=== PATIENT | female | born 1985 | race Caucasian/White ===

== ENCOUNTER 2016-04-04 23:13 | Emergency (ER) | payer OTHER, MEDICARE ==
[~2016-04-04] VITALS: Ht 160 cm; Wt 72.6 kg
[2016-04-04] MEDS ORDERED: PROPRANOLOL HCL20 M1 PO (23:35)
[2016-04-04] MEDS ORDERED: FOLIC ACID1 M1 PO (23:35)
[2016-04-04] MEDS ORDERED: CLOZARIL100 M1 PO (23:36)
[2016-04-04] MEDS ORDERED: TOPIRAMATE100 M2 PO (23:36)
[2016-04-04] MEDS ORDERED: LIOTHYRONINE SO5 MC1 PO (23:36)
[2016-04-04] MEDS ORDERED: LEVOTHYROXINE100 MC1 PO (23:36)
[2016-04-04] MEDS ORDERED: SIMVASTATIN40 M1 PO (23:36)
--- NOTE | 2016-04-05 00:23 | ED NEURO DEFICIT/STROKE ---
History of Present Illness General Chief Complaint: General Adult Stated Complaint: PER PT" DIFF USING WORDS OFF BALANCE" Source: patient Exam Limitations: no limitations Vital Signs & Intake/Output Vital Signs & Intake/Output Vital Signs Date Time Temp Pulse Resp B/P Pulse O2 O2 Flow FiO2 Ox Delivery Rate 04/04 2334 Room Air 04/04 2324 98.6 93 18 112/75 98 Room Air ED Intake and Output 04/05 0000 04/04 1200 Intake Total Output Total Balance Patient 160 lb Weight Allergies Coded Allergies: NO KNOWN ALLERGIES (11/13/10) Reconcile Medications Clozapine (Clozaril) 100 MG TABLET 1 TAB PO BID (Reported) Folic Acid 1 MG TABLET 1 TAB PO DAILY SUPPLEMENT (Reported) Levothyroxine Sodium 100 MCG TABLET 1 TAB PO DAILY THYROID (Reported) Liothyronine Sodium 5 MCG TABLET 1 TAB PO DAILY HYPOTHYROID (Reported) Propranolol HCl 20 MG TABLET 1 TAB PO BID HTN (Reported) Simvastatin (Simvastatin*) 40 MG TABLET 1 TAB PO QPM CHOLESTEROL (Reported) Topiramate 100 MG TABLET 1 TAB PO BID SEIZURES (Reported) Triage Note: PT TO ED WITH MOM FOR DIFFICULTY FINDING WORDS AND FEELING OFF BALNACE. PMH OF CVA IN 2009. HAD SPEACH AND PHYSICAL THERAPY AND WAS BACK TO BASELING. NO FAICAL DROOP, NO ARM DRIFT, NO DIFFICULTY WALKING TO TRIAGE. PT TEXTING ON PHONE IN WAITING ROOM. PER MOM, SPEACH IS STILL NOT BACK TO [place]. PMH OF MIGRAINES. C/O HEADACHE. PMH OF ANXIETY, BIPOLAR AND SCHIZO Triage Nurses Notes Reviewed? yes : No Patient currently breastfeeds: No HPI: Patient presents for evaluation of her getting her words and switching her words began abruptly at about 9:00 this evening. Patient states that she checked herself or weakness by holding her hands out in front of her and felt that she was weak on the left side. In addition she is also experiencing a dull bilateral temporal headache with no associated visual changes. She does have a history of migraine headaches with aura. Patient is concerned about the severity of her symptoms because of a prior stroke she had a number of years ago of an unclear etiology. Past History Travel History Traveled to [place] past 21 day No Medical History Any Pertinent Medical History? see below for history Neurological: migraine, TREMOR Cardiovascular: CVA Respiratory: asthma Musculoskeletal: SCOLIOSIS HYPOTONIA Psychiatric: anxiety, bipolar disease, schizo affective disorder Endocrine: hypothyroidism, INSULIN RESISTANCE Surgical History Surgical History: non-contributory Psychosocial History Who do you live with Mother What is your primary language Irish Tobacco Use: Never used ETOH Use: denies use Illicit Drug Use: denies illicit drug use Family History Hx Contributory? No Review of Systems Review of Systems Constitutional: Reports: no symptoms. EENTM: Reports: no symptoms. Respiratory: Reports: no symptoms. Cardiovascular: Reports: no symptoms. GI: Reports: no symptoms. Genitourinary: Reports: no symptoms. Musculoskeletal: Reports: no symptoms. Skin: Reports: no symptoms. Neurological/Psychological: Reports: see HPI. Hematologic/Endocrine: Reports: no symptoms. Immunologic/Allergic: Reports: no symptoms. All Other Systems: Reviewed and Negative Physical Exam Physical Exam General Appearance: sEE BELOW Cranial Nerves: SEE BELOW Comments: Gen.: Well-nourished, well-developed, no acute respiratory distress. Head: Normocephalic, atraumatic. Face: Sensation to light touch intact, no facial droop Eyes: Normal inspection bilaterally Ears: Normal inspection bilaterally Nose: Normal inspection Throat/mouth : Moist mucosa Neck: Supple, full range of motion, no goiter Heart: Regular rate and rhythm, no murmurs rubs or gallops Lungs: Clear to auscultation bilaterally with normal air entry Chest: Nontender Back: Normal range of motion Abdomen: Soft, nontender, nondistended, normal bowel sounds Extremities: Normal range of motion grossly, equal radial pulses, no cyanosis clubbing or edema, muscle strength normal, no dysmetria of the upper or lower extremities Neurologic: Cranial nerves 2 through 12 intact, speech is clear aside from mild dysarthria (chronic per patient and mother) Skin: warm and dry Psychiatric: Calm, cooperative, no apparent delusions or hallucinations Core Measures CVA/TIA Diagnosis: No Severe Sepsis Present: No Septic Shock Present: No Progress Differential Diagnosis: IMPLICATED MIGRAINE, cva, HYPO-/HYPERTHYROIDISM Plan of Care: Orders Procedure Date/time Status CT HEAD WO IV CONTRAST 04/05 18 Active Diagnostic Imaging: Discussed w/RAD: CT Scan. Radiology Impression: PATIENT: POLI RODRIGEZ PRESENT AGE: 30 PATIENT ACCOUNT NO: [id number] : 87 LOCATION: [facility] ORDERING PHYSICIAN: TYE SALINAS MD SERVICE DATE: 04/05/16 EXAM TYPE: CAT - CT HEAD WO IV CONTRAST CT HEAD WITHOUT CONTRAST CLINICAL INFORMATION: Trouble speaking with history of prior CVA/bleed. COMPARISON: Brain MRI 03/14/[address] 12/23/2011. TECHNIQUE: Contiguous axial imaging was performed from the skull base to vertex without intravenous administration of contrast. FINDINGS: There is no intracranial hemorrhage, hydrocephalus, extra-axial surface collection, midline shift, or other herniation pattern. No dense cerebral artery sign is appreciated. Boyd to white matter differentiation is diffusely maintained without evidence of an evolved acute territorial infarct. A chronic lacunar infarct within the left thalamus is redemonstrated. The basilar cisterns are preserved. No significant soft tissue abnormality. No acute osseous abnormality. The paranasal sinuses and the mastoid air cells are well-aerated. IMPRESSION: - No acute intracranial abnormality. - A chronic lacunar infarct within the left thalamus is redemonstrated. DICTATED BY: TYE MCGILL MD DATE /TIME DICTATED:04/05/1658 COMPOSITE LAYUP WORKER:TIMMY DATE/TIME TRANSCRIBED: 04/05/1658 CONFIDENTIAL, DO NOT COPY WITHOUT APPROPRIATE AUTHORIZATION. < Electronically signed in Other Vendor System> SIGNED BY: TYE MCGILL MD 04/05/16 0107 Initial ED EKG: none Comments: Given the normal physical examination, the patient and her mother decided to simply check a CAT scan of the head. Departure Departure Disposition: HOME OR SELF CARE Condition: Stable Clinical Impression Primary Impression: Dysarthria Referrals: BUBBA JIMENEZ,BAYRON BORJA (PCP/Family) Additional Instructions: FOLLOW up with your neurologist this week. Notify your primary care doctor of this emergency Department visit and treatment plan. Return if any concerns or sudden worsening. Departure Forms: Customer Survey General Discharge Information
--- NOTE | 2016-04-05 01:07 | CT SCAN REPORT ---
CT HEAD WITHOUT CONTRAST CLINICAL INFORMATION: Trouble speaking with history of prior CVA/bleed. COMPARISON: Brain MRI 03/14/[address] 12/23/2011. TECHNIQUE: Contiguous axial imaging was performed from the skull base to vertex without intravenous administration of contrast. FINDINGS: There is no intracranial hemorrhage, hydrocephalus, extra-axial surface collection, midline shift, or other herniation pattern. No dense cerebral artery sign is appreciated. Boyd to white matter differentiation is diffusely maintained without evidence of an evolved acute territorial infarct. A chronic lacunar infarct within the left thalamus is redemonstrated. The basilar cisterns are preserved. No significant soft tissue abnormality. No acute osseous abnormality. The paranasal sinuses and the mastoid air cells are well-aerated. IMPRESSION: - No acute intracranial abnormality. - A chronic lacunar infarct within the left thalamus is redemonstrated.
[2016-04-05 02:30] VITALS: BP 115/69
== END 2016-04-05 02:32 ==
LOC: ERH 23:13
DX: R47.1 Dysarthria and anarthria (principal); R51 Headache

== ENCOUNTER 2017-07-28 17:47 | Observation (INO) | payer OTHER, MEDICARE ==
[~2017-07-28] VITALS: Ht 157.5 cm; Wt 77.3 kg
[~2017-07-28 17:47] MED LIST: ALPRAZOLAM0.25 M1 PO; ASPIRIN81 M4 PO; CLOZARIL100 M1 PO; FOLIC ACID1 M1 PO; LEVOTHYROXINE100 MC1 PO; LIOTHYRONINE SO5 MC1 PO; PROPRANOLOL HCL20 M1 PO; SIMVASTATIN40 M1 PO; TOPIRAMATE100 M2 PO; VENTOLIN HFA18 GM INH
[2017-07-28 18:20] LABS: ABSOLUTE BASOPHIL COUNT 0 /CUMM (0.0-0.2); ABSOLUTE EOSINOPHIL COUNT 0 /CUMM (0.0-0.7); ABSOLUTE GRANULOCYTE CT 4.5 /CUMM (1.4-6.5); ABSOLUTE LYMPH COUNT 1.9 /CUMM (1.2-3.4); ABSOLUTE MONOCYTE COUNT 0.6 /CUMM (0.10-0.60); BASOPHIL % 0.4 % (0.0-2.0); EOSINOPHIL % 0 % (0-5); GRANULOCYTE % 63.9 % (42.2-75.2); HEMATOCRIT 43.9 % (37-47); MEAN CORPUSCULAR HGB 30.9 PG (27.0-31.0); MEAN CORPUSCULAR HGB CONC 33.8 G/DL (33.0-37.0); MEAN CORPUSCULAR VOLUME 91.4 FL (81.0-99.0); MEAN PLATELET VOLUME 7.9 FL (7.4-10.4); PLATELET COUNT 298 /CUMM (130-400); RBC DISTRIBUTION WIDTH 13.5 % (11.5-14.5)
--- NOTE | 2017-07-28 20:56 | RADIOLOGY REPORT ---
EXAMINATION: CHEST 2 VIEWS CLINICAL INFORMATION: Chest pain. COMPARISON: 07/10/2010. TECHNIQUE: AP frontal and lateral views of the chest obtained FINDINGS: The lungs are well expanded. No focal infiltrate, effusion, edema, or pneumothorax. Cardiac and mediastinal silhouettes are within normal limits for technique. No acute bony abnormality seen IMPRESSION: No evidence of acute disease
--- NOTE | 2017-07-28 21:31 | ED CARDIAC/CP/PALPITATIONS ---
History of Present Illness General Chief Complaint: Chest Pain Stated Complaint: CP/EKG CHANGES Source: patient, family, old records Exam Limitations: no limitations Vital Signs & Intake/Output Vital Signs & Intake/Output Vital Signs Date Time Temp Pulse Resp B/P B/P Pulse O2 O2 Flow FiO2 Mean Ox Delivery Rate 07/28 2200 98.0 101 18 104/66 99 Room Air 07/28 1930 97.0 102 18 119/66 100 07/28 1758 98.2 91 18 114/78 98 Room Air Allergies Coded Allergies: NO KNOWN ALLERGIES (11/13/10) Reconcile Medications Albuterol Sulfate (Ventolin Hfa) 90 MCG HFA.AER.AD 2 PUF INH Q4-6 PRN PRN ASTHMA (Reported) Alprazolam 0.25 MG TABLET 1 TAB PO BIDP PRN ANXIETY (Reported) Aspirin (Aspirin*) 81 MG TAB.CHEW 1 TAB PO DAILY HEART HEALTH (Reported) Clozapine (Clozaril) 100 MG TABLET 3 TAB PO DAILY MENTAL HEALTH (Reported) Folic Acid 1 MG TABLET 1 TAB PO DAILY SUPPLEMENT (Reported) Levothyroxine Sodium 100 MCG TABLET 1 TAB PO DAILY AC THYROID (Reported) Liothyronine Sodium 5 MCG TABLET 1 TAB PO DAILY HYPOTHYROID (Reported) Propranolol HCl 20 MG TABLET 1 TAB PO BID HTN (Reported) Simvastatin (Simvastatin*) 40 MG TABLET 1 TAB PO QPM CHOLESTEROL (Reported) Topiramate 100 MG TABLET 1 TAB PO BID SEIZURES (Reported) Triage Note: PT SENT IN BY PCP FOR CHEST PAIN AND LEFT SIDED UPPER ARM PAIN. PT STATES PAIN STARTED ABOUT 1 MONTH AGO BUT HAS BECOME INCREASING MORE COMMEN. PT DENIES SOB WITH PAIN. PT STATES HER PAIN IS A 1 AT THIS TIME. Triage Nurses Notes Reviewed? yes : No Patient currently breastfeeds: No HPI: 32F PMH schizoaffective disorder, history of thalamic CVA at age 24, presenting with one month of intermittent left sided chest pain. Pain is described as intense, squeezing, radiating to left arm, occuring at rest and with exertion. It is not associated with SOB, palpitations, lightheadedness, diaphoresis. The intensity and frequency of the pain has been increasing over the past few days. She has a strong family history of cardiac disease. She does not smoke or use drugs. Past History Travel History Traveled to [place] past 21 day No Medical History Any Pertinent Medical History? see below for history Neurological: migraine, TREMOR EENT: NONE Cardiovascular: CVA Respiratory: asthma Gastrointestinal: NONE Hepatic: NONE Renal: NONE Musculoskeletal: SCOLIOSIS HYPOTONIA Psychiatric: anxiety, bipolar disease, schizo affective disorder Endocrine: hypothyroidism, INSULIN RESISTANCE Blood Disorders: anemia Cancer(s): NONE AERIAL CROP DUSTER/Reproductive: NONE Surgical History Surgical History: non-contributory Psychosocial History Who do you live with Mother What is your primary language Estonian Tobacco Use: Never used ETOH Use: denies use Illicit Drug Use: denies illicit drug use Family History Hx Contributory? No Review of Systems Review of Systems Constitutional: Reports: no symptoms. EENTM: Reports: no symptoms. Respiratory: Reports: no symptoms. Cardiovascular: Reports: no symptoms. GI: Reports: no symptoms. Genitourinary: Reports: no symptoms. Musculoskeletal: Reports: no symptoms. Skin: Reports: no symptoms. Neurological/Psychological: Reports: no symptoms. Hematologic/Endocrine: Reports: no symptoms. Immunologic/Allergic: Reports: no symptoms. All Other Systems: Reviewed and Negative Physical Exam Physical Exam General Appearance: well developed/nourished, no apparent distress Head: atraumatic, normal appearance Eyes: Bilateral: normal appearance. Ears, Nose, Throat: normal ENT inspection, hearing grossly normal Neck: normal inspection, supple, full range of motion Respiratory: normal breath sounds, chest non-tender, no respiratory distress Cardiovascular: regular rate/rhythm Gastrointestinal: soft, non-tender Back: normal inspection, normal range of motion Extremities: normal inspection, normal range of motion Neurologic/Psych: awake, alert, oriented x 3, normal mood/affect Skin: intact, normal color, warm/dry Core Measures ACS in differential dx? Yes CVA/TIA Diagnosis No Sepsis Present: No Sepsis Focused Exam Completed? No Progress Differential Diagnosis: AMI, aortic dissection, atrial fibrillation, cholecystitis, CHF/pulm edema, costochondritis, hyperkalemia, hypovolemia, hyperthyroid, hyperventilation, intracranial hemorrhage, musculoskeletal pain, myocarditis, pancreatitis, pericarditis, pneumonia, pneumothorax, PSVT, pulmonary embolism, PUD/GERD, PVCs/PACs, respiratory failure, rib fracture, sepsis, unstable angina, V-fib/V-Tach, WPW syndrome Plan of Care: Orders Procedure Date/time Status Nothing by Mouth 07/29 B Active TROPONIN LEVEL 07/28 2199 Active EKG 07/[address] in observation 07/28 2141 Active ED Holding Orders 07/28 2141 Active Vital Signs 07/28 2141 Active Code Status 07/28 2141 Active URINE 07/28 1757 Complete URINALYSIS 07/28 1757 Complete TROPONIN LEVEL 07/28 1757 Complete COMPREHENSIVE METABOLIC PANEL 07/28 1757 Complete CBC WITHOUT DIFFERENTIAL 07/28 1757 Complete EKG 07/28 1748 Active Laboratory Tests 07/28/172199: Troponin I Pending 07/28/171944: Urine Color STRAW, Urine Clarity CLEAR, Urine pH 6.5, Ur Specific [place] <= 1.005, Urine Protein NEG, Urine Ketones NEG, Urine Nitrite NEG, Urine Bilirubin NEG, Urine Urobilinogen 0.2, Ur Leukocyte Esterase NEG, Ur Microscopic SEDIMENT EXAMINED, Urine RBC RARE, Urine WBC RARE, Ur Epithelial Cells RARE, Urine Bacteria RARE H, Urine Hemoglobin LARGE H, Urine Glucose NEG, Urine Test NEGATIVE 07/28/17 180: Anion Gap 16, Estimated GFR > 60, BUN/Creatinine Ratio 13.3, Glucose 91, Calcium 9.9, Total Bilirubin 0.3, AST 17, ALT 16, Alkaline Phosphatase 99, Troponin I < 0.01, Total Protein 7.3, Albumin 4.4, Globulin 2.9, Albumin/Globulin Ratio 1.5, CBC w Diff NO MAN DIFF REQ, RBC 4.80, MCV 91.4, MCH 30.9, MCHC 33.8, RDW 13.5, MPV 7.9, Gran % 63.9, Lymphocytes % 27.8, Monocytes % 7.9, Eosinophils % 0, Basophils % 0.4, Absolute Granulocytes 4.5, Absolute Lymphocytes 1.9, Absolute Monocytes 0.6, Absolute Eosinophils 0, Absolute Basophils [address] Goetz, who recommended observing patient overnight with morning treadmill nuclear stress test. Diagnostic Imaging: Viewed by Me: Radiology Read. Discussed w/RAD: Radiology Read. Radiology Impression: PATIENT: POLI RODRIGEZ PRESENT AGE: 32 PATIENT ACCOUNT NO: [id number] : 87 LOCATION: [facility] ORDERING PHYSICIAN: Ruperto JIMENEZ SERVICE DATE: 07/28/17 EXAM TYPE: RAD - XRY- CHEST XRAY, TWO VIEWS EXAMINATION: CHEST 2 VIEWS CLINICAL INFORMATION: Chest pain. COMPARISON: 07/10/2010. TECHNIQUE: AP frontal and lateral views of the chest obtained FINDINGS: The lungs are well expanded. No focal infiltrate, effusion, edema, or pneumothorax. Cardiac and mediastinal silhouettes are within normal limits for technique. No acute bony abnormality seen IMPRESSION: No evidence of acute disease DICTATED BY: Haroldo Calero MD DATE/TIME DICTATED :07/28/172050 LOZENGE DOUGH MIXER:TIMMY DATE/TIME TRANSCRIBED:07/28/172050 CONFIDENTIAL, DO NOT COPY WITHOUT APPROPRIATE AUTHORIZATION. < Electronically signed in Other Vendor System> SIGNED BY: Haroldo Calero MD 07/28/172055 Initial ED EKG: normal sinus rhythm, no ST T wave changes Repeat EKG: unchanged Departure Departure Disposition: STILL A PATIENT Condition: Stable Clinical Impression Primary Impression: Chest pain at rest Referrals: Neeta Forrest (PCP/Family) Departure Forms: Customer Survey General Discharge Information Observation Note [facility]: [facility] Patient In: Non-ED OBS Care Area Rationale for Observation: My rational for observation is as follows HISTORY OF CVA AT AGE 24 NOW WITH SQUEEZING LEFT SIDED CHEST PAIN AT REST RADIATING TO LEFT ARM, WILL OBSERVE AND RULE OUT FOR ACS WITH NUCLEAR STRESS TEST AND CARDIOLOGY CONSULT. Critical Care Note Critical Care Note Critical Care Time: non-applicable
--- NOTE | 2017-07-28 23:14 | History & Physical ---
See Addendum Shayy POLLARD,Nikky 07/28/17 2043: General Information and HPI MD Statement: I have seen and personally examined POLI RODRIGEZ and documented this H&P. The patient is a 32 year old F who presented with a patient stated chief complaint of [chest pain]. Source of Information: patient, old records Exam Limitations: no limitations History of Present Illness: 32 years old female with past medical history thalamic CVA at age 24, asthma, migraine, hypothyroidism, and anxiety, bipolar disease, schizoaffective disorder presents with chief complaint of left sided pressure-like chest pain radiating to her left arm (she describes the pain in the arm as a squeezing in nature) which started 1 month ago. It is intermittent and happens almost 15 times a day last a few seconds to a few minutes. Not related to exercise. And does not wake her up from sleep. The pain is not changed with deep breathing or different positions. She denies any recent trauma to her chest or upper respiratory infection. Patient denies any recent changes to her medications or hucy-mas-kjqbprh supplements. Patient denies any similar complaints in the past. Her last admission was in 2010 for acute CVA (acute left thalamic infarct) patient follow-up with her PCP, psychiatrist and Dr. Whitmore however she does not recall why exactly she will follow up with him. She thinks he is the one who prescribed her folic acid but cannot remember why. Patient has family history of CAD in her grandfather. Her last echo with bubble study in 2009 showed no ASD or PFO Allergies/Medications Allergies: Coded Allergies: NO KNOWN ALLERGIES (11/13/10) Home Med list Albuterol Sulfate (Ventolin Hfa) 90 MCG HFA.AER.AD 2 PUF INH Q4-6 PRN PRN ASTHMA (Reported) Alprazolam 0.25 MG TABLET 1 TAB PO BIDP PRN ANXIETY (Reported) Aspirin (Aspirin*) 81 MG TAB.CHEW 1 TAB PO DAILY HEART HEALTH (Reported) Clozapine (Clozaril) 100 MG TABLET 3 TAB PO DAILY MENTAL HEALTH (Reported) Folic Acid 1 MG TABLET 1 TAB PO DAILY SUPPLEMENT (Reported) Levothyroxine Sodium 100 MCG TABLET 1 TAB PO DAILY AC THYROID (Reported) Liothyronine Sodium 5 MCG TABLET 1 TAB PO DAILY HYPOTHYROID (Reported) Propranolol HCl 20 MG TABLET 1 TAB PO BID HTN (Reported) Simvastatin (Simvastatin*) 40 MG TABLET 1 TAB PO QPM CHOLESTEROL (Reported) Topiramate 100 MG TABLET 1 TAB PO BID SEIZURES (Reported) Past History Travel History Traveled to [place] past 21 day No Medical History Neurological: migraine, TREMOR EENT: NONE Cardiovascular: CVA Respiratory: asthma Gastrointestinal: NONE Hepatic: NONE Renal: NONE Musculoskeletal: SCOLIOSIS HYPOTONIA Psychiatric: anxiety, bipolar disease, schizo affective disorder Endocrine: hypothyroidism, INSULIN RESISTANCE Blood Disorders: anemia Cancer(s): NONE SENIOR COURTROOM CLERK/Reproductive: NONE Surgical History Surgical History: non-contributory Past Family/Social History Family History Relations & Conditions if any MOTHER FATHER Relation not specified for: FH: mental illness FH: mental illness Psychosocial History ETOH Use: denies use Illicit Drug Use: denies illicit drug use Review of Systems Review of Systems Constitutional: Denies: no symptoms. Cardiovascular: Reports: chest pain. Denies: edema, orthopena, palpitations, peripheral edema. Respiratory: Denies: no symptoms. GI: Denies: no symptoms. Musculoskeletal: Denies: no symptoms. Skin: Denies: no symptoms. Neurological/Psychological: Denies: no symptoms. Hematologic/Endocrine: Denies: no symptoms. Exam & Diagnostic Data Last 24 Hrs of Vital Signs/I&O Vital Signs Date Time Temp Pulse Resp B/P B/P Pulse O2 O2 Flow FiO2 Mean Ox Delivery Rate 07/29 0111 97.6 83 18 102/78 98 Room Air 07/29 0053 98.7 84 18 115/64 07/29 0051 98.7 84 18 115/64 98 Room Air 07/28 2200 98.0 101 18 104/66 99 Room Air 07/28 1930 97.0 102 18 119/66 100 07/28 1758 98.2 91 18 114/78 98 Room Air Intake & Output 07/29 0800 07/29 0000 07/28 1600 Intake Total 0 Output Total Balance 0 Intake, Oral 0 Patient 170 lb 170 lb Weight Weight Reported by Patient Measurement Method Physical Exam General Appearance Alert, Oriented X3, Cooperative, No Acute Distress HEENT Atraumatic, PERRLA, EOMI, Mucous Membr. moist/pink Neck Supple, No JVD Cardiovascular Normal S1, Normal S2, No Murmurs Lungs Clear to Auscultation Abdomen Normal Bowel Sounds, Soft Neurological Normal Speech, Strength at 5/5 X4 Ext, Normal Tone, Sensation Intact Extremities No Clubbing, No Cyanosis, No Edema Vascular Normal Pulses Assessment/Plan Assessment: 32 years old female with past medical history thalamic CVA at age 24, asthma, migraine, hypothyroidism, and anxiety, bipolar disease, schizoaffective disorder presents with chief complaint of left sided atypical pressure-like chest pain radiating to her left arm (she describes the pain in the arm as a squeezing in nature) which started 1 month ago. It is intermittent and happens almost 15 times a day last a few seconds to a few minutes Patient has history of CVA at the age of 24 and family history of CAD in her grandfather which puts her at high risk. Vital signs on admission: Blood pressure 114/78, pulse 91, temperature 98.2, respiratory rate 18, pulse 98 on room air Labs on admission: WBC 7, hemoglobin 14.9, platelets 298, sodium 145, potassium 4, BUN 12, creatinine 0.9, troponin less than 0.01 and 2 sets, UA positive for large hemoglobin Chest x-ray:No evidence of acute disease EKG: Normal sinus rhythm, MD 164, QTc 446, heart rate 88, no STT wave changes Problem list: Atypical chest pain (rule out ACS) history of thalamic CVA Hypothyroidism History of an anxiety and schizoaffective disorder History of asthma Plan: Observe on telemetry Continuous telemetry monitoring Vitals every shift Serial troponin and EKG to rule out ACS Exercise stress test in a.m. Echo Follow-up thyroid profile, TSH, free T4 Cardiology consult appreciated Continue home meds Continue aspirin 81 mg daily N.p.o. for exercise stress test DVT prophylaxis with subcutaneous heparin Full code As Ranked By This Provider Problem List: 1. Chest pain at rest Core Measures/Misc (11/29) Acute Coronary Syndrome ACS Diagnosis: No Congestive Heart Failure Congestive Heart Failure Diagnosis No Cerebrovascular Accident CVA/TIA Diagnosis: No VTE (View Protocol) VTE Risk Factors Age>40 No Mechanical VTE Prophylaxis d/t N/A MechProphylax Ordered No VTE Pharm Prophylaxis d/t NA PharmProphylax ordered Sepsis (View protocol) Sepsis Present: No Ole Vasquez MD 07/28/17 6906: Resident Review Statement Resident Statement: discussed with internal medicine physician assistant, agreed with internal medicine physician assistant Other Findings: 32 yo F with pmh of thalamic ischemic CVA 8 yrs ago, HLD, migraine, hypothyroidism, asthma, anxiety, bipolar disorder, schizoaffective disorder, sent in by her PCP to the emergency department with complaints of chest pain- left sided, radiating to her left arm with squeezing sensation, associated with mild shortness of breath, since one month, which is abrupt, intermittant, has no relation to pain meds/exercise. She mentioned it to her PCP who referred her to the ED for further eval and management. She denies any palpitations, shortness of breath, leg swelling, recent travel, cough, fever/chills, or history of similar symptoms. Her last flu-like illness was in Apr. In the ED, she received one dose of ASA 325 mg. At the time of interviweing, she was not in pain, respiratory or other distress. Vitals, labs, images as reported above. EKG::::::::::::::::: She is being observed in telemetry floor for the following issues: # Chest pain, ruling out ACS Although females less than 55 years of his have less chances of having acute coronary events, this patient has had CVA in the past shile she had HLD and was taking OC-pills. her symptoms are since a month, but are of concerning nature for atypical chest pain, warranting ruling out ACS with or without stress test. * Observe in telemetry floor * Monitor vitals, isosorbide regularly * Trend troponin and EKG to rule out ACS * Echocardiogram * Possibly stress test in the morning * Cardiology consultation * Will continue home medication of aspirin, beta ad, statin #Will continue her home medications. #Not sure why she takes folic acid which is being prescribed by Dr Whitmore ( Pharmacy Technician Inpatient), but will continue her home dose for now. Housekeeping: Diet: Heart healthy diet DVT ppx: SQ Lovenox Code status: Full code Conservator: Pateint's mother (per patient) Juan POLLARD, [facility] 07/29/17 0002: Attending MD Review Statement Attending Statement Attending MD Statement: examined this patient, discuss w/resident/PA/PACKING MACHINE TENDER, agreed w/resident/PA/PACKING MACHINE TENDER, reviewed images, amended to note Attending Assessment/Plan: 32 yo F with h/o schizoaffective disorder on clozaril, OCD, left thalamic stroke (2009), HLD, anxiety, hypothyroidism, asthma, ?seizures, ?anemia, is here for evaluation of ongoing intermittent left sided chest pain (squeezing, pressure sensation) radiating to the left arm for the past 1 month. Symptoms occur at both exertion and rest. No associated s/s of palpitations, lightheadedness or diaphoresis. She is a nonsmoker. Vitals stable. Exam benign. Labs unremarkable. CXR: no acute disease. EKG: sinus rhythm, nonspecific ST changes, Qtc 446. Echo (2009): EF 65%, REZA done which was normal. Assessment and plan: 1. Chest pain on exertion and rest 2. History of left thalamic stroke 3. Hypothyroidism 4. Hyperlipidemia - 23 hour observation on Telemetry - Watch for arrhythmias - Serial EKG and troponin - Obtain Echocardiogram - Cardio consult (Dr. Goetz) - NPO after midnight for a exercise stress test in AM - Continue aspirin, statin. - Hold AM dose of beta ad prior to stress test - Check TSH, free T4, lipid panel and A1c DVT ppx Lovenox. Full code. Mother is conservator. Observation Initial Note - I have personally examined POLI RODRIGEZ on 07/29/17 at 0002. The disposition of POLI RODRIGEZ is uncertain at this time and before a determination can be made, she requires a period of observation for the following reasons [Intermittent chest pain and dyspnea in this patient with h/o HLD and thalamic stroke.]
[2017-07-29 01:11] VITALS: BP 102/78
[2017-07-29 06:00] VITALS: BP 100/64
--- NOTE | 2017-07-29 07:44 | PN-Observation ---
Carmelo POLLARD,[facility] 07/29/17 0744: Observation Note Observation Note _ I have personally examined POLI RODRIGEZ. her disposition is uncertain at this time. Before a determination can be made, she requires continued observation for the following reasons [atypical chest pain]. Assessment/Plan Medical Assessment: 32 years old female with past medical history thalamic CVA at age 24, asthma, migraine, hypothyroidism, and anxiety, bipolar disease, schizoaffective disorder presents with chief complaint of left sided chest pain. Assessment: 1. Chest Pain Syndrome 2. History of CVA with no deficits 3. History of Hypothyroidsim 4. History of Schizoaffective disorder, Bipolar disease and Anxiety Plan: * Continue monitoring on telemetry for now * ACS was r/o with serial troponins and EKGs * Her symptoms appear to be more musculoskeletal in nature. * Await cardiology input. * Await stress test later during the day. * If stress test is negative, will give her a trial of NSAIDS/muscle relaxants. * TFTs are wnl * Her lipid panel is normal * Diet: NPO for now. Regular diet after stress test * DVT Prophylaxis: SC Heparin * Code: Full Code Problem List: 1. Chest pain at rest Plan: . Subjective Follow-up For: Atypical chest pain Tele-Events Since Last Visit: NSR with HR 79-84. No overnight events. Subjective: Patient was seen and examined this morning. She had 2 episodes of chest pain with pressure like sensation in her left shoulder, during the night which resolved within 5 minutes. No aggravating/relieving factors or associated symptoms. Review of Systems Constitutional: Reports: no symptoms. Objective Last 24 Hrs of Vital Signs/I&O Vital Signs Date Time Temp Pulse Resp B/P B/P Pulse O2 O2 Flow FiO2 Mean Ox Delivery Rate 07/29 0600 97.0 72 16 100/64 97 Room Air 07/29 0111 97.6 83 18 102/78 98 Room Air 07/29 0053 98.7 84 18 115/64 07/29 0051 98.7 84 18 115/64 98 Room Air 07/28 2200 98.0 101 18 104/66 99 Room Air 07/28 1930 97.0 102 18 119/66 100 07/28 1758 98.2 91 18 114/78 98 Room Air Intake & Output 07/29 1600 05/17 0800 07/29 0000 Intake Total 0 Output Total Balance 0 Intake, Oral 0 Patient 170 lb 170 lb Weight Weight Reported by Patient Measurement Method Physical Exam General Appearance: Alert, Oriented X3, Cooperative, Mild Distress Skin: No Rashes, No Breakdown Skin Temp/Moisture Exam: Warm/Dry Sepsis Skin Exam (color): Normal for Ethnicity HEENT: Atraumatic Cardiovascular: Normal S1, Normal S2, No Murmurs Lungs: Clear to Auscultation, Normal Air Movement Abdomen: Soft, No Tenderness Neurological: Normal Speech Extremities: No Edema Last 24 Hrs of Labs/Mics: Laboratory Tests 07/29/17 0633: Anion Gap 14, Estimated GFR > 60, BUN/Creatinine Ratio 17.5, Hemoglobin A1c 5.1, Triglycerides 123, Cholesterol 135, LDL Cholesterol, Calc 71, HDL Cholesterol 40 , Cholesterol/HDL Ratio 3, TSH Pending, Free T4 0.88, CBC w Diff Pending, WBC Pending, RBC Pending, Hgb Pending, Hct Pending, MCV Pending, MCH Pending, MCHC Pending, RDW Pending, Plt Count Pending, MPV Pending 07/29/17 0420: Troponin I < 0.01 07/28/17 2200: Troponin I < 0.01 07/28/17 1945: Urine Opiates Screen < 100, Methadone Screen < 40, Barbiturate Screen < 60, Ur Phencyclidine Scrn < 6.00, Amphetamines Screen < 100, U Benzodiazepines Scrn < 85, Urine Cocaine Screen < 50, Urine Cannabis Screen < 5.00, Urine Color STRAW, Urine Clarity CLEAR, Urine pH 6.5, Ur Specific [place] <= 1.005, Urine Protein NEG, Urine Ketones NEG, Urine Nitrite NEG, Urine Bilirubin NEG, Urine Urobilinogen 0.2, Ur Leukocyte Esterase NEG, Ur Microscopic SEDIMENT EXAMINED, Urine RBC RARE, Urine WBC RARE, Ur Epithelial Cells RARE, Urine Bacteria RARE H , Urine Hemoglobin LARGE H, Urine Glucose NEG, Urine Test NEGATIVE 07/28/17 1804: Anion Gap 16, Estimated GFR > 60, BUN/Creatinine Ratio 13.3, Glucose 91, Calcium 9.9, Total Bilirubin 0.3, AST 17, ALT 16, Alkaline Phosphatase 99, Troponin I < 0.01, Total Protein 7.3, Albumin 4.4, Globulin 2.9, Albumin/Globulin Ratio 1.5, CBC w Diff NO MAN DIFF REQ, RBC 4.80, MCV 91.4, MCH 30.9, MCHC 33.8, RDW 13.5, MPV 7.9, Gran % 63.9, Lymphocytes % 27.8, Monocytes % 7.9, Eosinophils % 0, Basophils % 0.4, Absolute Granulocytes 4.5, Absolute Lymphocytes 1.9, Absolute Monocytes 0.6, Absolute Eosinophils 0, Absolute Basophils 0 Ajay Salas 07/29/17 1001: Attending Addendum Attending Brief Note Patient with atypical chest pain in h/o stroke with no determined etilogy as per patient. Denies chest pain this morning. Stress test f/u. Plan for discharge if negative. Follow up with PCP in 2 weeks at discharge.
[2017-07-29 08:27] LABS: ABSOLUTE BASOPHIL COUNT 0 /CUMM (0.0-0.2); ABSOLUTE EOSINOPHIL COUNT 0 /CUMM (0.0-0.7); ABSOLUTE GRANULOCYTE CT 3.3 /CUMM (1.4-6.5); ABSOLUTE LYMPH COUNT 2.1 /CUMM (1.2-3.4); ABSOLUTE MONOCYTE COUNT 0.6 /CUMM (0.10-0.60); BASOPHIL % 0.4 % (0.0-2.0); EOSINOPHIL % 0 % (0-5); GRANULOCYTE % 54.5 % (42.2-75.2); HEMATOCRIT 39.7 % (37-47); MEAN CORPUSCULAR HGB CONC 33.9 G/DL (33.0-37.0); MEAN CORPUSCULAR VOLUME 91.5 FL (81.0-99.0); MEAN PLATELET VOLUME 8.2 FL (7.4-10.4); PLATELET COUNT 245 /CUMM (130-400); RBC DISTRIBUTION WIDTH 13.5 % (11.5-14.5); RED BLOOD CELL CT 4.34 /CUMM (4.20-5.40)
--- NOTE | 2017-07-29 10:40 | Patient Discharge Instructions ---
See Addendum Discharge Instructions General Discharge Information You were seen/treated for: Chest Pain Special Instructions: Please follow up with your PCP within one week of discharge. your stress test was negative for any cardiac cause of chest pain. Diet Continue normal diet: Yes Activity Full Activity/No Limits: Yes Acute Coronary Syndrome Inclusion Criteria At DC or during hospital stay patient has or had the following: ACS DIAGNOSIS No Discharge Core Measures Meds if any: Prescribed or Continued at Discharge Meds if any: NOT Prescribed or Continued at Discharge Congestive Heart Failure Inclusion Criteria At DC or during hospital stay patient has or had the following: CHF DIAGNOSIS No Discharge Core Measures Meds if any: Prescribed or Continued at Discharge Meds if any: NOT Prescribed or Continued at Discharge Cerebrovascular accident Inclusion Criteria At DC or during hospital stay patient has or had the following: CVA/TIA Diagnosis No Discharge Core Measures Meds if any: Prescribed or Continued at Discharge Meds if any: NOT Prescribed or Continued at Discharge Venous thromboembolism Inclusion Criteria VTE Diagnosis No VTE Type NONE VTE Confirmed by (Test) NONE Discharge Core Measures - Per Current guidelines, there needs to be overlap - treatment for the first 5 days of Warfarin therapy. - If discharged on Warfarin prior to 5 days of - overlap therapy, the patient will need to be - assessed for post discharge needs including - *Post discharge parental anticoagulation - *Warfarin and/or parental anticoagulation education - *Follow up date to check INR post discharge At least 5 days overlap therapy as Inpatient No Meds if any: Prescribed or Continued at Discharge Note: Overlap Therapy is Warfarin and Anticoagulant Meds if any: NOT Prescribed or Continued at Discharge
--- NOTE | 2017-07-29 13:24 | PN- Student ---
Damaris Guo 07/29/17 1319: Subjective Subjective: Patient reports being comfortable overnight, no new episodes of pain, any SOB, or palpatations. She did not sleep well but blames this on the hospital setting. Patient denies any headaches, dizziness, vision loss, paroxysmal noctural dyspnia, vomiting, diarrhea, and dysuria. Objective Objective: Pt is sitting comfortably in bed, well developed, well nourished, in no acute distress Lungs are clear to auscultation throughout Normal s1, s2, no murmurs, rubs, gallops Abdomin soft and nontender in all four quardrants Dorsalis pedis pulse 2+, no evidence of pedal edema Results Results: Vital Signs Date Time Temp Pulse Resp B/P B/P Pulse O2 O2 Flow FiO2 Mean Ox Delivery Rate 07/29 0600 97.0 72 16 100/64 97 Room Air 07/29 0111 97.6 83 18 102/78 98 Room Air 07/29 0053 98.7 84 18 115/64 07/29 0051 98.7 84 18 115/64 98 Room Air 07/28 2200 98.0 101 18 104/66 99 Room Air 07/28 1930 97.0 102 18 119/66 100 / 1758 98.2 91 18 114/78 98 Room Air Intake & Output 07/29 1600 07/29 0800 07/29 0000 Intake Total 25 0 Output Total Balance 25 0 Intake, Oral 25 0 Patient 170 lb 170 lb Weight Weight Reported by Patient Measurement Method Laboratory Tests 07/29/17 0633: Anion Gap 14, Estimated GFR > 60, BUN/Creatinine Ratio 17.5, Hemoglobin A1c 5.1, Triglycerides 123, Cholesterol 135, LDL Cholesterol, Calc 71, HDL Cholesterol 40 , Cholesterol/HDL Ratio 3, TSH 0.932, Free T4 0.88, CBC w Diff NO MAN DIFF REQ, RBC 4.34, MCV 91.5, MCH 31.0, MCHC 33.9, RDW 13.5, MPV 8.2, Gran % 54.5, Lymphocytes % 35.6, Monocytes % 9.5 H, Eosinophils % 0, Basophils % 0.4, Absolute Granulocytes 3.3, Absolute Lymphocytes 2.1, Absolute Monocytes 0.6, Absolute Eosinophils 0, Absolute Basophils 0 07/29/17 0420: Troponin I < 0.01 07/28/172199: Troponin I < 0.01 07/28/171944: Urine Opiates Screen < 100, Methadone Screen < 40, Barbiturate Screen < 60, Ur Phencyclidine Scrn < 6.00, Amphetamines Screen < 100, U Benzodiazepines Scrn < 85, Urine Cocaine Screen < 50, Urine Cannabis Screen < 5.00, Urine Color STRAW, Urine Clarity CLEAR, Urine pH 6.5, Ur Specific [place] <= 1.005, Urine Protein NEG, Urine Ketones NEG, Urine Nitrite NEG, Urine Bilirubin NEG, Urine Urobilinogen 0.2, Ur Leukocyte Esterase NEG, Ur Microscopic SEDIMENT EXAMINED, Urine RBC RARE, Urine WBC RARE, Ur Epithelial Cells RARE, Urine Bacteria RARE H , Urine Hemoglobin LARGE H, Urine Glucose NEG, Urine Test NEGATIVE 07/28/171803: Anion Gap 16, Estimated GFR > 60, BUN/Creatinine Ratio 13.3, Glucose 91, Calcium 9.9, Total Bilirubin 0.3, AST 17, ALT 16, Alkaline Phosphatase 99, Troponin I < 0.01, Total Protein 7.3, Albumin 4.4, Globulin 2.9, Albumin/Globulin Ratio 1.5, CBC w Diff NO MAN DIFF REQ, RBC 4.80, MCV 91.4, MCH 30.9, MCHC 33.8, RDW 13.5, MPV 7.9, Gran % 63.9, Lymphocytes % 27.8, Monocytes % 7.9, Eosinophils % 0, Basophils % 0.4, Absolute Granulocytes 4.5, Absolute Lymphocytes 1.9, Absolute Monocytes 0.6, Absolute Eosinophils 0, Absolute Basophils 0 CXR: IMPRESSION: No evidence of acute disease Assessment/Plan Assessment: 32 yo female with past medical history of CVA at age 24, asthama, migraine, hypothyroidism, anxiety, bipolar disorder, schizoaffective disorder and significant family history of CAD is being observed for pressure-like chest pain which radiates to left arm. Serum electrolytes and troponin is within normal limits, there is no evidence of ischemia on EKG and Chest x-ray shows no evidence of pathology. Plan: 1. Chest pain: follow up with excercise stress test and continue monitoring on telemetry for any EKG changes. It is very likely from her age and negative review of systems she is not having acute coronary syndrome due to atherlosclorotic disease. The likely origin of the pain is musculoskeletal since the patient began a new job 3 months ago where she is lifting heavy objects daily. She may also be experiencing vasospastic angina, although these episodes don't wake her up in the middle of the night and she experienced some pain this morning with no changes in EKG. 3. CVA: continue monitoring homocystiene levels and avoid OCP. The origin of her previous stroke is unknown, at the time she was on OCPs and has since discontinued them to prevent hypercoaguable effects of estrogen therapy. She is also being given folate supplementation for possible homocystienuria as an etiology of thrombosis. She had recieved an echocardiogram bubble study after the event which came back normal, so the mechanical structure of her heart is unlikely to have contributed to this event. She has had no subsequent thrombotic events in 8 years since her stroke so it is likely that one of these may have contributed. 2. Hypothyriodism: maintain home dose of levothyrioxine. 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 Her hypothyriodism seems to be well controlled and the medication has not changed in a while, it is unlikely that this is contributing to her current presentation and she should continue monitoring outpatient with her base manager. Carmelo POLLARD,[facility] 07/30/17 1322: Resident Review Statement Resident Statement: examined this patient, discussed with internal medicine specialist, agreed with internal medicine specialist, discussed with family, reviewed EMR data (avail), discussed with nursing , discussed with case mgmt, reviewed images, amended to note
[2017-07-29 14:50] VITALS: BP 94/56
--- NOTE | 2017-07-29 17:37 | NUCLEAR MEDICINE REPORT ---
EXERCISE STRESS AND RESTING SPECT MYOCARDIAL PERFUSION IMAGING STUDY WITH GATED SPECT IMAGES: CLINICAL INDICATION: Chest pain. PROCEDURE: Regional myocardial perfusion was assessed using a 1 day protocol. Stress images were obtained on 07/29/2017 following the intravenous administration of 20.9 mCi Tc 99m Myoview. Stress was performed using the standard Obed protocol, with the patient reaching a peak heart rate of 65% maximal predicted heart rate. Rest images were obtained 07/29/2017 following the intravenous administration of 29.1 mCi Technetium 99m Myoview. Single photon emission tomographic (SPECT) images were obtained. SPECT images were acquired in a 64 x 64 matrix of 64 projections over 180 degrees. These were reconstructed into standard short axis, horizontal and vertical long axis cardiac projections. FINDINGS: The post stress images demonstrate the left ventricular chamber to be normal in size. There is homogeneous distribution of activity in the left ventricular myocardium with no regions of abnormally decreased activity noted. The resting images also demonstrate homogeneous distribution of activity in the left ventricular myocardium, and are not significantly changed from the post stress images. The stress images were obtained using a gated SPECT technique, which permits visualization of wall motion and calculation of the left ventricular ejection fraction. No left ventricular wall motion abnormalities are noted on the stress study. The calculated left ventricular ejection fraction is 66% on the stress study. No previous study is available for comparison. IMPRESSION: No perfusion abnormalities are noted. Because the patient was unable to achieve an adequate heart rate response, significant myocardial ischemia during exercise cannot be ruled out. Normal left ventricular wall motion and ejection fraction.
--- NOTE | 2017-07-29 17:51 | Cons- Cardiology ---
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 She presented to the ER with complaints of chest discomfort. This symptom began about a month ago but has increased in frequency to the point that she has it on a daily basis. The discomfort is a mild left chest discomfort behind her left breast that radiates toward her left arm. It is a pressure sensation that occurs without provocation and last for a few seconds. There is no association with manual palpation, breathing or physical exertion. She denies shortness of breath at her usual level of activity and does not report lightheadedness or palpitations. Allergies/Medications Allergies: Coded Allergies: NO KNOWN ALLERGIES (11/13/10) Home Med List: Albuterol Sulfate (Ventolin Hfa) 90 MCG HFA.AER.AD 2 PUF INH Q4-6 PRN PRN ASTHMA (Reported) Alprazolam 0.25 MG TABLET 1 TAB PO BIDP PRN ANXIETY (Reported) Aspirin (Aspirin*) 81 MG TAB.CHEW 1 TAB PO DAILY HEART HEALTH (Reported) Clozapine (Clozaril) 100 MG TABLET 3 TAB PO DAILY MENTAL HEALTH (Reported) Folic Acid 1 MG TABLET 1 TAB PO DAILY SUPPLEMENT (Reported) Levothyroxine Sodium 100 MCG TABLET 1 TAB PO DAILY AC THYROID (Reported) Liothyronine Sodium 5 MCG TABLET 1 TAB PO DAILY HYPOTHYROID (Reported) Propranolol HCl 20 MG TABLET 1 TAB PO BID HTN (Reported) Simvastatin (Simvastatin*) 40 MG TABLET 1 TAB PO QPM CHOLESTEROL (Reported) Topiramate 100 MG TABLET 1 TAB PO BID SEIZURES (Reported) Review of Systems Review of Systems: A 12 point review of systems is unremarkable. Past History Travel History Traveled to [place] past 21 day No Medical History Blood Transfusion Hx: No Neurological: migraine, TREMOR EENT: NONE Cardiovascular: CVA Respiratory: asthma Gastrointestinal: NONE Hepatic: NONE Renal: NONE Musculoskeletal: SCOLIOSIS HYPOTONIA Psychiatric: anxiety, bipolar disease, schizo affective disorder Endocrine: hypothyroidism, INSULIN RESISTANCE Blood Disorders: anemia Cancer(s): NONE SKIN CARE INSTRUCTOR/Reproductive: NONE Surgical History Surgical History: non-contributory Family History Relations & Conditions If Any: MOTHER FATHER Relation not specified for: FH: mental illness FH: mental illness Psychosocial History Smoking Status: Never Smoked ETOH Use: denies use Illicit Drug Use: denies illicit drug use Exam & Diagnostic Data Vital Signs and I&O Vital Signs Date Time Temp Pulse Resp B/P B/P Pulse O2 O2 Flow FiO2 Mean Ox Delivery Rate 07/29 1450 97.3 80 20 94/56 96 Room Air 07/29 0600 97.0 72 16 100/64 97 Room Air 07/29 0111 97.6 83 18 102/78 98 Room Air 07/29 0053 98.7 84 18 115/64 07/29 0051 98.7 84 18 115/64 98 Room Air 07/28 2200 98.0 101 18 104/66 99 Room Air 07/28 1930 97.0 102 18 119/66 100 07/28 1758 98.2 91 18 114/78 98 Room Air Intake & Output 07/29 1600 07/29 0800 07/29 0000 07/28 1600 07/28 0800 07/28 0000 Intake Total 60 25 0 Output Total Balance 60 25 0 Intake, Oral 60 25 0 Patient 170 lb 170 lb Weight Weight Reported by Patient Measurement Method Physical Exam: General: WD/WN female in NAD; alert and oriented x 3 HEENT: NC/AT, PERRL, EOMI Neck: no JVD, no carotid bruit Heart: RRR w/o murmur Lungs: clear bilaterally Abdomen: soft, NT, +ve bowel sounds Extremities: no edema Assessment/Plan Assessment/Plan * This patient has symptoms that are a bit atypical for myocardial ischemia and she has ruled out for an NH. Her stress test is negative for ischemia and she has a normal EF. It is possible that this patient has coronary vasospasm, especially since she has migraines which is another vasospastic disorder, but I am not inclined to begin a calcium channel ad due to her low normal blood pressure. If she continues to be symptomatic in office follow up then I will stop her beta ad and begin Amlodipine. No changes for now. Okay to discharge this patient to home on her usual home medications with follow up in the office in one week. Consult Acknowledgment - Thank you for your consult request.
--- NOTE | 2017-07-30 10:07 | ECHOCARDIOGRAM REPORT ---
POLI RODRIGEZ Age: 32 : 1985 Gender: F Exam Date: 07/29/2017 16:58 Exam Location: [facility] Ht (in): 62 Wt (lb): 170 BSA: 1.87 BP: 102 / 78 Ordering Physician: Ole Vasquez MD Referring Physician: Ole Vasquez MD Technologist: Jena Flower GABRIELLA Room Number: [id number] Indications: CHEST PAIN Rhythm: Sinus Technical Quality: Fair FINDINGS Left Ventricle Normal left ventricular size, wall thickness and systolic function with no obvious regional wall motion abnormalities. Normal left ventricular diastolic filling pattern for age. The ejection fraction is visually estimated at >65 %. Right Ventricle The right ventricle is normal in size and function. Right Atrium The right atrium is normal in size. Left Atrium Normal left atrial size. The interatrial septum is not well seen on this study. Mitral Valve The mitral valve is normal in structure and function. There is no mitral regurgitation. Aortic Valve Structurally normal aortic valve without significant sclerosis or stenosis. There is aortic regurgitation. Tricuspid Valve The tricuspid valve is normal in structure and function. There is trace tricuspid regurgitation. Unable to estimate the right ventricular systolic pressure. Pulmonic Valve Structurally normal pulmonic valve. There is pulmonic regurgitation. Pericardium Normal pericardium without effusion. No pleural effusion. Great Vessels Normal aortic root dimension. The aortic arch and great vessels are well seen and are normal. CONCLUSIONS No significant chamber abnormalities. No significant valve abnormalities. Normal transthoracic echocardiogram. Physiologic valvular regurgitation. Unable to estimate the right ventricular systolic pressure. The interatrial septum is not well seen on this study. René Pennington M.D. (Electronically Signed) Final Date: 30 Jul 2017 10:06 MEASUREMENTS (Male / Female) Normal Values 2D ECHO LV Diastolic Diameter PLAX 4.1 cm 4.2 - 5.9 / 3.9 - 5.3 cm LV Systolic Diameter PLAX 2.6 cm 2.1 - 4.0 cm LV Fractional Shortening PLAX 36.6 % 25 - 46 % LV Ejection Fraction 2D Teich 66.8 % IVS Diastolic Thickness 0.8 cm LVPW Diastolic Thickness 0.7 cm LV Relative Wall Thickness 0.4 RV Internal Dim ED PLAX 2.3 cm 1.9 - 3.8 cm LVOT Diameter 1.8 cm Aortic Root Diameter 2.3 cm LA Systolic Diameter LX 2.5 cm 3.0 - 4.0 / 2.7 - 3.8 cm LA Volume 15.0 cm 18 - 58 / 22 - 52 cm Ascending Aorta Diameter 2.1 cm DOPPLER AV Peak Velocity 102.0 cm/s AV Peak Gradient 4.2 mmHg AV Mean Velocity 69.7 cm/s AV Mean Gradient 2.0 mmHg AV Velocity Time Integral 22.7 cm LVOT Peak Velocity 67.7 cm/s LVOT Peak Gradient 1.8 mmHg LVOT Mean Velocity 51.5 cm/s LVOT Mean Gradient 1.0 mmHg LVOT Velocity Time Integral 13.9 cm LVOT Stroke Volume 35.4 cm AV Area Cont Eq vti 1.6 cm AV Area Cont Eq pk 1.7 cm MV Peak Velocity 85.1 cm/s MV Peak Gradient 2.9 mmHg MV Mean Velocity 57.3 cm/s MV Mean Gradient 2.0 mmHg Mitral E Point Velocity 64.2 cm/s Mitral A Point Velocity 52.8 cm/s Mitral E to A Ratio 1.2 MV PHT Velocity 91.2 cm/s MV Deceleration Gosper 352.0 cm/s MV Pressure Half Time 77.7 ms MV Area PHT 2.8 cm MV Deceleration Time 108.0 ms PV Peak Velocity 96.5 cm/s PV Peak Gradient 3.7 mmHg PV Mean Velocity 65.5 cm/s PV Mean Gradient 2.0 mmHg PV Velocity Time Integral 25.5 cm LV E' Lateral Velocity 9.5 cm/s Mitral E to LV E' Lateral Ratio 6.8 LV E' Septal Velocity 8.5 cm/s Mitral E to LV E' Septal Ratio 7.6
== END 2017-07-29 19:20 ==
LOC: ERH 17:47 → 1NO 21:42 → ERHI 21:42 → ENRESERV 07-29 00:38 → 1NO 07-29 01:06 → ENPENDDIS 07-29 18:03 → 1NO 07-29 19:20
PROVIDERS: Physician Assistant Medical; Student in an Organized Health Care Education/Training Program
DX: R07.89 Other chest pain (principal); Z86.73 Personal history of transient ischemic attack (TIA), and cerebral infarction without residual deficits; J45.909 Unspecified asthma, uncomplicated; G43.909 Migraine, unspecified, not intractable, without status migrainosus; E03.9 Hypothyroidism, unspecified; F41.9 Anxiety disorder, unspecified; F31.9 Bipolar disorder, unspecified; F25.9 Schizoaffective disorder, unspecified; Z79.82 Long term (current) use of aspirin; D64.9 Anemia, unspecified; M41.80 Other forms of scoliosis, site unspecified; Z79.899 Other long term (current) drug therapy
CPT/HCPCS: 6020; 36592; 71046; 78452; 80307; 81001; 81025; 82436; 93005; 93010; 93016; 93017; 93306; 96372; A9502; G0378; J1650; J3490